=== PATIENT | female | born 1960 | race Caucasian/White ===

== ENCOUNTER 2025-02-16 12:06 | Day surgery (SDC) | payer BC, OTHER ==
[2025-02-16] MEDS ORDERED: ROCURONIUM BROMIDE 50 MG/5 ML SYRINGE ONE (12:13)
[2025-02-16] MEDS ORDERED: PROPOFOL 40 ML ONE (12:13)
[2025-02-16] MEDS ORDERED: MIDAZOLAM HCL 2 MG/2 ML SINGLE DOSE VIAL ONE (12:13)
[2025-02-16] MEDS ORDERED: SUCCINYLCHOLINE CHLORIDE 200 MG/10 ML SYRINGE ONE (12:13)
[2025-02-16 12:30] VITALS: BMI 33.0
[2025-02-16 12:42] LABS: HEMATOCRIT 29.2 % (34.1-44.9); HEMOGLOBIN 9.2 g/dL (11.2-15.7); MCHC 31.5 g/dl (32.2-35.5); MEAN CELL VOLUME 90.4 fl (79.4-94.8); MEAN PLT VOLUME 11.2 fl (9.4-12.3); PLATELET COUNT 430 x10^3/uL (182-369)
[2025-02-16] MEDS ORDERED: METOCLOPRAMIDE HCL INJECTION 10 MG/2 ML VIAL ONE (12:42)
[2025-02-16] MEDS ORDERED: BUPIVACAINE HCL/EPINEPHRINE/PF 30 ML VIAL IJ ONE (12:55)
[2025-02-16] MEDS ORDERED: ACETAMINOPHEN 325 MG TABLET (FP) PO PRN (13:01)
[2025-02-16] MEDS ORDERED: ONDANSETRON 4 MG/2 ML VIAL IVPUSH PRN (13:01)
[2025-02-16] MEDS ORDERED: LACTATED RINGERS SOLUTION 1,000 ML IV SCH ×2 (13:15→14:45)
[2025-02-16] MEDS: BUPIVACAINE 0.25% /EPI 1:200,000 10 ML VIAL NR ONE (13:24)
[2025-02-16] MEDS ORDERED: NEOSTIGMINE METHYLSULFATE 0.5 MG/1 ML - 10 ML MDV ONE (13:33)
[2025-02-16] MEDS ORDERED: HYDROmorphone HCL/PF 1 MG/ML VIAL ONE (13:52)
[2025-02-16] MEDS ORDERED: oxyCODONE HCL 5 MG TABLET PO PRN (14:34)
[2025-02-16] MEDS ORDERED: ACETAMINOPHEN INJECTION 100 ML ONE (14:42)
[2025-02-16] MEDS: ACETAMINOPHEN 1000 MG/100 ML BAG IVPB ONE (14:45)
[2025-02-16] MEDS ORDERED: CEFAZOLIN 1 GM/D5W 1 GRAM/50 ML BAG IVPB SCH ×2 (15:00→19:30)
[2025-02-16 15:33] VITALS: RESP 16
[2025-02-16 16:02] VITALS: PULSE 92; TEMP 98.2
[2025-02-16 17:20] VITALS: BP 94/52
== END 2025-02-16 17:05 | disposition home or self-care (01) ==
LOC: FER 12:06 → FASU 12:34 → FASUSAT 12:34 → FASU 17:05
PROVIDERS: ATTEND Plastic Surgery
PROC: 3E10X8Z Irrigation of Skin and Mucous Membranes using Irrigating Substance (ICD-10-PCS; 2025-02-16)
PROC: 0JX80ZZ Transfer Abdomen Subcutaneous Tissue and Fascia, Open Approach (ICD-10-PCS; principal; 2025-02-16 13:25)
DX: L03.311 Cellulitis of abdominal wall (principal); C50.912 Malignant neoplasm of unspecified site of left female breast; Z90.13 Acquired absence of bilateral breasts and nipples; B95.7 Other staphylococcus as the cause of diseases classified elsewhere; B96.20 Unspecified Escherichia coli [E. coli] as the cause of diseases classified elsewhere; F31.9 Bipolar disorder, unspecified; I10 Essential (primary) hypertension; E78.00 Pure hypercholesterolemia, unspecified; Z85.3 Personal history of malignant neoplasm of breast
CPT/HCPCS: 36415; 85027; 87070; 87186; 87205; 94760; 99285-25; J0131

== ENCOUNTER 2025-08-24 09:22 | Day surgery (SDC) | payer BC, OTHER ==
[2025-08-07 14:34] VITALS: BMI 26.2
[2025-08-24] MEDS ORDERED: SODIUM BICARBONATE 8.4% 50 MEQ/50 ML VIAL ONE ×2 (10:15→10:31)
[2025-08-24] MEDS ORDERED: EPINEPHrine 1:1000 P/F - 1 MG/ML AMP ONE ×2 (10:16→10:31)
[2025-08-24] MEDS ORDERED: POLYMYXIN B SULFATE 500,000 UNIT VIAL ONE (10:16)
[2025-08-24] MEDS ORDERED: GENTAMICIN SO4 80 MG/2 ML VIAL ONE (10:16)
[2025-08-24] MEDS ORDERED: LIDOCAINE HCL 2% (20ML MULTI-DOSE VIAL) ONE ×2 (10:16→10:32)
[2025-08-24] MEDS ORDERED: BUPIVACAINE HCL/PF 0.5% (5MG/ML) 10 ML VIAL ONE (10:16)
[2025-08-24] MEDS ORDERED: BUPIVACAINE HCL/PF 2.5 MG/ML - 30 ML VIAL IJ ONE (10:17)
[2025-08-24] MEDS ORDERED: LIDOCAINE 1%/EPI 1:100000 (20 ML MULTI DOSE VIAL) ONE (10:17)
[2025-08-24] MEDS ORDERED: BUPIVACAINE HCL/EPINEPHRINE/PF 30 ML VIAL IJ ONE (10:32)
[2025-08-24] MEDS ORDERED: LACTATED RINGERS SOLUTION 1,000 ML IV SCH ×2 (11:00→13:45)
[2025-08-24] MEDS ORDERED: MIDAZOLAM HCL 2 MG/2 ML SINGLE DOSE VIAL ONE (11:08)
[2025-08-24] MEDS ORDERED: ROCURONIUM BROMIDE 50 MG/5 ML SYRINGE ONE (12:11)
[2025-08-24] MEDS ORDERED: PROPOFOL 20 ML ONE (12:19)
[2025-08-24] MEDS ORDERED: SUGAMMADEX SODIUM 200 MG/2 ML VIAL ONE (13:26)
[2025-08-24] MEDS: ACETAMINOPHEN 1000 MG/100 ML BAG IVPB ONE (13:55)
[2025-08-24 15:01] VITALS: RESP 16; TEMP 97.6
[2025-08-24 16:54] VITALS: BP 124/78; PULSE 76
== END 2025-08-24 16:25 | disposition home or self-care (01) ==
LOC: FASU 09:22
PROVIDERS: ATTEND Plastic Surgery
PROC: 0HSXXZZ Reposition Left Nipple, External Approach (ICD-10-PCS; principal; 2025-08-24 12:00)
PROC: 0HSWXZZ Reposition Right Nipple, External Approach (ICD-10-PCS; 2025-08-24 12:00)
DX: C50.912 Malignant neoplasm of unspecified site of left female breast (principal); N65.0 Deformity of reconstructed breast; Z90.13 Acquired absence of bilateral breasts and nipples
CPT/HCPCS: 88305-TC; 94760